=== PATIENT | female | born 1950 | race Caucasian/White ===

== ENCOUNTER 2017-08-31 10:02 | Outpatient (CLI) | payer MEDICARE, OTHER ==
--- NOTE | 2017-09-01 11:37 | DEXA Report ---
DEXA SCAN: 08/31/2017 CLINICAL INDICATION: Postmenopausal. TECHNIQUE: Dual energy x-ray absorptiometry (DXA) was performed on a Neumitra system. Regions measured are the AP spine, femoral neck, and, if needed, forearm. COMPARISON: None. In accordance with the International Society for Clinical Densitometry (ISCD) guidelines, data from previous exams may be reanalyzed using current recommendations and techniques. This is done to allow a more accurate basis for comparison with the current study. FINDINGS: The data for the lumbar spine is as follows: REGION BMD (g/cm/cm) T-SCORE Z-SCORE L1 1.000 -1.1 -0.6 L2 1.047 -1.3 -0.8 L3 1.235 0.3 0.8 L4 1.234 0.3 0.8 TOTAL 1.140 -0.3 0.1 NOTE: All evaluable vertebrae are used for classification. The data for the hip is as follows: REGION BMD (g/cm/cm) T-SCORE Z-SCORE Neck 0.858 -1.3 -0.5 TOTAL 0.933 -0.6 -0.1 NOTE: The femoral neck or total proximal femur, whichever is lowest, is used for classification. IMPRESSION: THE WHO CLASSIFICATION BASED ON THE INTERNATIONAL REFERENCE STANDARD IS OSTEOPENIA (REFERENCE LEFT FEMORAL NECK). THE FRACTURE RISK IS INCREASED. RECOMMENDATION: Patients with diagnosis of osteoporosis or osteopenia should have regular bone mineral density assessment. For those eligible for Medicare, routine testing is allowed once every 2 years. Testing frequency can be increased for patients who have rapidly progressing disease or for those who are receiving medical therapy to restore bone mass. COMMENT: World Health Organization (WHO) definitions for osteoporosis and osteopenia: NORMAL BMD: T-score at 1.0 or higher, fracture risk is low. OSTEOPENIA BMD: T-score between 1.0 and -2.5, fracture risk is increased. OSTEOPOROSIS BMD: T-score at 2.5 or lower, fracture risk high. National Osteoporosis Foundation recommends: 1. Obtain adequate dietary calcium (at least 1200 mg per day) and vitamin D (400 -800 international units per day). 2. Participate, as appropriate, in regular weightbearing and muscle- strengthening exercise. 3. Avoid tobacco use and reduce alcohol and caffeine intake. 4. For more detailed information see the website at www.NOF.org. RA/ TD: 08/31/2017 13:36 ALEX
== END 2017-08-31 10:03 | disposition home or self-care (01) ==
LOC: DI 10:02
PROVIDERS: ATTEND Internal Medicine
DX: Z13.820 Encounter for screening for osteoporosis (principal); M85.88 Other specified disorders of bone density and structure, other site; Z78.0 Asymptomatic menopausal state
CPT/HCPCS: 77080

== ENCOUNTER 2018-06-08 10:04 | Outpatient (CLI) | payer MEDICARE, OTHER ==
[2018-06-08 10:50] LABS: BILIRUBIN,URINE NEGATIVE (NEGATIVE); GLUCOSE, URINE (UA) NEGATIVE (NEGATIVE); KETONES,URINE (UA) NEGATIVE (NEGATIVE); LEUKOCYTE ESTERASE, URINE NEGATIVE (NEGATIVE); NITRITE,URINE NEGATIVE (NEGATIVE); OCCULT BLOOD,URINE NEGATIVE (NEGATIVE); PH,URINE 6.5 PH (5.0-7.5); PROTEIN,URINE NEGATIVE (NEGATIVE); UROBILINOGEN,URINE 0.2 (NORMAL) E.U./dL (NORMAL)
[2018-06-08 11:18] LABS: CLARITY,URINE CLEAR (CLEAR)
== END 2018-06-08 10:05 | disposition home or self-care (01) ==
LOC: LAB 10:04
PROVIDERS: ATTEND Internal Medicine Cardiovascular Disease
DX: R30.0 Dysuria (principal)
CPT/HCPCS: 81001; 81003; 87086

== ENCOUNTER → 2018-06-08 | Outpatient (CLI) | payer MEDICARE, OTHER | LOC: RT 09:00 | PROVIDERS: ATTEND Internal Medicine Cardiovascular Disease | DX: R07.9 Chest pain, unspecified (principal) | CPT/HCPCS: 93005 ==

== ENCOUNTER 2018-07-26 10:56 | Outpatient (CLI) | payer MEDICARE, OTHER ==
--- NOTE | 2018-07-26 16:05 | CARDIAC PROCEDURE NOTE ---
DATE OF SERVICE: 07/26/2018 Physician: Lisa Garay MD, [facility] INDICATION: Chest pain. CARDIAC RISK FACTORS 1. Advanced age. 2. Hypertension. 3. Hyperlipidemia. SUMMARY: After signing informed consent, the patient performed exercise stress testing on a Omar protocol, along with nuclear myocardial perfusion imaging. Resting heart rate 74, peak heart rate 118 (77% predicted maximum heart rate for age). Resting blood pressure 128/70, peak blood pressure 180/60. The patient exercised for 6 minutes on a Omar protocol. She achieved a peak heart rate of 118 (77% PMHR) and 7 METS. The test was stopped due to marked shortness of breath. The patient had slow recovery of her shortness of breath in recovery. Her oxygen saturation was 92% at peak exercise on room air. The patient had no chest pain during this entire test. RESTING EKG: Normal sinus rhythm, possible Q-waves in leads III and AVF, poor R-wave progression across the entire precordium. EKG AT PEAK: No new ST or T-wave changes. SUMMARY 1. Poor exercise tolerance, deconditioning, and shortness of breath was the limiting factor. 2. Exercise stopped due to severe shortness of breath, the patient did not achieve target heart rate. 3. Abnormal resting EKG. 4. No ischemic EKG changes at the suboptimal peak heart rate. 5. Nuclear images reported separately. 6. If the myocardial perfusion is normal, this could be due to inadequate heart rate response. Consider then a pharmaceutical stress test for evaluation. cc: Deena Ashford MD TD: 07/26/2018 15:51 MTDD
--- NOTE | 2018-07-27 08:20 | Nuclear Medicine Report ---
Reason: CHEST PAIN Procedure Date: 07/26/2018 Accession Number: [id number] / [id number] Procedure: NM - Myocardial Perfusion STR/RST CPT Code: FULL RESULT: EXAM: SINGLE-ISOTOPE EXERCISE STRESS TEST. SINGLE-ISOTOPE AND ONE-DAY REST/STRESS MYOCARDIAL PERFUSION SCANS WITH TOMOGRAPHIC IMAGING, QUANTITATIVE ANALYSIS, WALL MOTION ANALYSIS AND CALCULATION OF EJECTION FRACTION. EXAM DATE: 07/26/2018 05:07 PM. CLINICAL HISTORY: CHEST PAIN. COMPARISON: None. TECHNIQUE: A rest myocardial perfusion scan was done with tomography after the intravenous administration of 10.4 mCi Tc-99m sestamibi. After an appropriate delay, a treadmill exercise stress was performed according to department protocol. The patient exercised for 6 minutes and 6 seconds. The maximum heart rate was 118 bpm, which was 77% of the maximum predicted heart rate of 152 bpm. At approximately peak heart rate, 39.1 mCi of Tc-99m sestamibi was injected for stress myocardial perfusion scan. Motion correction was applied when appropriate. Gated tomographic images were obtained for wall motion analysis and computation of left ventricular ejection fraction. FINDINGS: On visual analysis, no significant fixed or reversible perfusion defects are evident. Computer analysis: Summed stress score 10 Summed rest score 3 Summed difference score 7 Wall motion analysis demonstrates no focal wall motion abnormality The left ventricular end-diastolic volume is 53 cc. The left ventricular end-systolic volume is 9 cc. The left ventricular ejection fraction is calculated to be 84%. IMPRESSION: 1. No convincing significant fixed or reversible perfusion defects. 2. Normal left ventricular ejection fraction of >65%. 3. Normal segmental and global wall motion. 4. Normal left ventricular cavity size, no change with stress. 5. Based on computer analysis, moderately abnormal study with mild ischemia. Based on computer analysis, this is felt to be an overestimate. 6. Note, the patient was unable to achieve target heart rate for the stress portion of the exam which may affect accuracy of the study. RADIA
== END 2018-07-26 10:57 | disposition home or self-care (01) ==
LOC: DI 10:56
PROVIDERS: ATTEND Internal Medicine Cardiovascular Disease
DX: R07.9 Chest pain, unspecified (principal); R94.31 Abnormal electrocardiogram [ECG] [EKG]
CPT/HCPCS: 78452; 93017; A9500

== ENCOUNTER 2018-09-11 09:31 | Emergency (ER) | payer MEDICARE, OTHER ==
--- NOTE | 2018-09-11 10:36 | ED Physician Documentation ---
PD HPI HEENT - Stated complaint Stated Complaint: SORE THROAT - Chief complaint Chief Complaint: Heent - History obtained from History obtained from: Patient - History of Present Illness Timing - onset: How many days ago (4) Timing - details: Gradual onset, Still present Pain level max: 5 Pain level now: 5 Location: Throat Improves: Nothing Worsens: Swalllowing Associated symptoms: Rhinorrhea. No: Fever, Congestion, Trismus, Swollen nodes, Facial swelling, Headache, Cough Similar symptoms before: Has not had sx before Recently seen: Not recently seen - Additional information Additional information: 67-year-old female with history of hypertension here with complaint of sore throat the past 4 days. Patient denies any fever, swollen tongue or throat. States has a little bit of nasal congestion. Denies any trauma, travel or recent illness.Denies any MEGAN inhibitor of lisinopril for her blood pressure. Review of Systems Ten Systems: 10 systems reviewed and negative Constitutional: denies: Fever, Chills, Myalgias Nose: reports: Rhinorrhea / runny nose, Congestion Throat: reports: Sore throat. denies: Dental pain / toothache, Oral lesions / sores, Swollen tonsils Cardiac: denies: Chest pain / pressure Respiratory: denies: Dyspnea, Cough Skin: denies: Rash Musculoskeletal: denies: Neck pain Neurologic: denies: Generalized weakness PD PAST MEDICAL HISTORY - Past Medical History Past Medical History: Yes Cardiovascular: Hypertension GI: GERD - Present Medications Home Medications: Ambulatory Orders Medication Instructions Recorded Confirmed Felodipine [Felodipine ER] 10 mg PO DAILY 09/11/18 09/11/18 Ibuprofen [Motrin] 800 mg PO Q8H PRN 09/11/18 09/11/18 RX: Omeprazole 20 mg PO DAILY 09/11/18 09/11/18 Simvastatin [Zocor] 20 mg PO DAILY 09/11/18 09/11/18 Telmisartan/Hydrochlorothiazid 1 each PO DAILY 09/11/18 09/11/18 [Micardis Hct 80-25 mg Tablet] Venlafaxine HCl [Venlafaxine HCl 225 mg PO DAILY 09/11/18 09/11/18 ER] - Allergies Allergies/Adverse Reactions: Allergies Allergy/AdvReac Type Severity Reaction Status Date / Time amoxicillin Allergy Hives Verified 09/11/18 09:41 - Social History Does the pt smoke?: No Smoking Status: Never smoker PD ED PE NORMAL - Vitals Vital signs reviewed: Yes - General General: Alert and oriented X 3, No acute distress, Well developed/nourished - HEENT HEENT: Atraumatic, Moist mucous membranes, Dentition benign, Other (No swelling of her lips, tongue or posterior pharynx. Uvula is Midline, mildly erythematous And faintly swollen. Posterior pharynx has no erythema nor exudate. No peritonsillar abscess.) - Neck Neck: Supple, no meningeal sign, No adenopathy - Cardiac Cardiac: RRR, No murmur - Respiratory Respiratory: Clear bilaterally - Abdomen Abdomen: Normal bowel sounds, Soft, Non tender, Non distended - Derm Derm: Warm and dry - Extremities Extremities: No deformity - Neuro Neuro: Alert and oriented X 3 - Psych Psych: Normal mood, Normal affect Results - Vitals Vitals: Vital Signs - 24 hr 09/11/18 09/11/18 09:41 11:50 Temperature 36.0 C L Heart Rate 77 76 Respiratory 18 18 Rate Blood Pressure 160/100 H 156/106 H O2 Saturation 98 98 Oxygen O2 Source Room air - Labs Labs: Laboratory Tests 09/11/18 10:40 Group A Strep Rapid Negative PD MEDICAL DECISION MAKING - ED course Complexity details: re-evaluated patient, considered differential (Pharyngitis, tonsillitis, upper respiratory infection, uvula irritation), d/w patient, d/w family ED course: 1140 patient in no acute distress and nontoxic-appearing with at the bedside. Patient inform of test results and pending culture. Patient wants to go home. Will take Tylenol or Motrin for pain. If worse will return to the emergency room. Departure - Departure Disposition: 01 Home, Self Care Clinical Impression: Sorethroat Condition: Stable Instructions: ED Pharyngitis Viral Report Pending Comments: Your throat culture is pending. Make sure you hydrate yourself. You may take [id number] Tylenol or Motrin for pain. If you are worse return to the emergency room. Discharge Date/Time: 09/11/18 11:59
[2018-09-11 11:51] VITALS: BP 156/106
== END 2018-09-11 11:59 | disposition home or self-care (01) ==
LOC: ED 09:31
DX: J02.9 Acute pharyngitis, unspecified (principal); I10 Essential (primary) hypertension
CPT/HCPCS: 87070; 87430; 99282; 99283

== ENCOUNTER 2018-10-08 04:39 | Emergency (ER) | payer MEDICARE, OTHER ==
--- NOTE | 2018-10-08 05:15 | ED Physician Documentation ---
History of Present Illness - Stated complaint Stated Complaint: COUGH - Chief complaint Chief Complaint: Resp - History obtained from History obtained from: Patient - History of Present Illness Timing: How many days ago (3) Pain level max: 0 Pain level now: 0 PD PAST MEDICAL HISTORY - Past Medical History Cardiovascular: Hypertension GI: GERD - Present Medications Home Medications: Ambulatory Orders Medication Instructions Recorded Confirmed Felodipine [Felodipine ER] 10 mg PO DAILY 09/11/18 09/11/18 Ibuprofen [Motrin] 800 mg PO Q8H PRN 09/11/18 09/11/18 Omeprazole 20 mg PO DAILY 09/11/18 09/11/18 Simvastatin [Zocor] 20 mg PO DAILY 09/11/18 09/11/18 Telmisartan/Hydrochlorothiazid 1 each PO DAILY 09/11/18 09/11/18 [Micardis Hct 80-25 mg Tablet] Venlafaxine HCl [Venlafaxine HCl 225 mg PO DAILY 09/11/18 09/11/18 ER] Benzonatate [Tessalon Perle] 100 - 200 mg PO TID PRN #30 capsule 10/08/18 - Allergies Allergies/Adverse Reactions: Allergies Allergy/AdvReac Type Severity Reaction Status Date / Time amoxicillin Allergy Hives Verified 09/11/18 09:41 - Social History Does the pt smoke?: No Smoking Status: Never smoker Results - Vitals Vitals: Vital Signs - 24 hr 10/08/18 04:44 Temperature 36.1 C L Heart Rate 73 Respiratory 18 Rate Blood Pressure 142/86 H O2 Saturation 95 Oxygen O2 Source Room air Departure - Departure Disposition: Home, Self Care Clinical Impression: Viral URI with cough Condition: Good Instructions: ED URI Viral Follow-Up: BEULAH BURGESS MD [Primary Care Provider] - As Needed Prescriptions: Benzonatate [Tessalon Perle] 100 - 200 mg PO TID PRN #30 capsule PRN Reason: Cough Comments: Return if you worsen. This will likely last 10-14 days.
[2018-10-08] MEDS ORDERED: BENZONATATE 100 MG CAPSULE PO STA (05:33)
[2018-10-08 05:52] VITALS: BP 131/81
--- NOTE | 2018-10-08 06:23 | ED Physician Documentation ---
History of Present Illness - Stated complaint Stated Complaint: COUGH - Chief complaint Chief Complaint: Resp - History obtained from History obtained from: Patient - History of Present Illness Timing: How many days ago (3) Pain level max: 0 Pain level now: 0 Improved by: rest Worsened by: coughing - Additonal information Additional information: 67-year-old female states she has been coughing for the past 3 days. Had a fever the first day but none since. States that she is out of cough medication. States that her chest hurts when she coughs. Has been taking Motrin for this. Is not having much nasal congestion. No sore throat. Review of Systems Constitutional: denies: Chills GI: denies: Vomiting, Diarrhea Skin: denies: Rash PD PAST MEDICAL HISTORY - Past Medical History Cardiovascular: Hypertension GI: GERD - Present Medications Home Medications: Ambulatory Orders Medication Instructions Recorded Confirmed Felodipine [Felodipine ER] 10 mg PO DAILY 09/11/18 09/11/18 Ibuprofen [Motrin] 800 mg PO Q8H PRN 09/11/18 09/11/18 Omeprazole 20 mg PO DAILY 09/11/18 09/11/18 Simvastatin [Zocor] 20 mg PO DAILY 09/11/18 09/11/18 Telmisartan/Hydrochlorothiazid 1 each PO DAILY 09/11/18 09/11/18 [Micardis Hct 80-25 mg Tablet] Venlafaxine HCl [Venlafaxine HCl 225 mg PO DAILY 09/11/18 09/11/18 ER] Benzonatate [Tessalon Perle] 100 - 200 mg PO TID PRN #30 capsule 10/08/18 - Allergies Allergies/Adverse Reactions: Allergies Allergy/AdvReac Type Severity Reaction Status Date / Time amoxicillin Allergy Hives Verified 09/11/18 09:41 - Social History Does the pt smoke?: No Smoking Status: Never smoker PD ED PE NORMAL - Vitals Vital signs reviewed: Yes - General General: Alert and oriented X 3, No acute distress - HEENT HEENT: Ears normal, Moist mucous membranes, Pharynx benign - Neck Neck: Supple, no meningeal sign - Cardiac Cardiac: RRR, Strong equal pulses - Respiratory Respiratory: No respiratory distress, Clear bilaterally - Derm Derm: Warm and dry - Neuro Neuro: Alert and oriented X 3 Results - Vitals Vitals: Vital Signs - 24 hr 10/08/18 10/08/18 04:44 05:51 Temperature 36.1 C L 36.0 C L Heart Rate 73 66 Respiratory 18 16 Rate Blood Pressure 142/86 H 131/81 H O2 Saturation 95 92 Oxygen O2 Source Room air PD MEDICAL DECISION MAKING - ED course Complexity details: considered differential, d/w patient ED course: Patient with what appears to be a viral upper respiratory infection. She is well-appearing, nontoxic. Afebrile. No hypoxia or respiratory distress. No evidence of pneumonia clinically. Will place on Tessalon for home and follow-up with her doctor. Patient counseled regarding signs and symptoms for which I believe and urgent re-evaluation would be necessary. Patient with good understanding of and agreement to plan and is comfortable going home at this time This document was made in part using voice recognition software. While efforts are made to proofread this document, sound alike and grammatical errors may occur. Departure - Departure Disposition: 01 Home, Self Care Clinical Impression: Viral URI with cough Condition: Good Instructions: ED URI Viral Follow-Up: BEULAH BURGESS MD [Primary Care Provider] - As Needed Prescriptions: Benzonatate [Tessalon Perle] 100 - 200 mg PO TID PRN #30 capsule PRN Reason: Cough Comments: Return if you worsen. This will likely last 10-14 days. Discharge Date/Time: 10/08/18 05:52
== END 2018-10-08 05:52 | disposition home or self-care (01) ==
LOC: ED 04:39
DX: J06.9 Acute upper respiratory infection, unspecified (principal); I10 Essential (primary) hypertension
CPT/HCPCS: 99283; A9270

== ENCOUNTER 2019-11-22 12:22 | Outpatient (CLI) | payer MEDICARE, OTHER ==
--- NOTE | 2019-12-04 12:37 | Mammography Report ---
Reason: ROUTINE MAMMO Procedure Date: 11/22/2019 Accession Number: [id number] / [id number] Procedure: MGN - Screening Mammo w/Lemuel CPT Code: Final Report FULL RESULT: EXAM: Screening Mammo w/Lemuel DATE: 11/22/2019 12:56 PM CLINICAL HISTORY: Nulliparous patient for routine screening TECHNIQUE: (B) - Bilateral CC and MLO views were obtained. COMPARISON: 06/29/2018, 05/19/2017, 04/13/2016 and 03/12/2015 PARENCHYMAL PATTERN: (A) - The breasts demonstrate scattered fibroglandular densities bilaterally. FINDINGS: No significant interval change. There are no suspicious masses, calcifications, or areas of distortion. Faint nodules bilaterally are stable. IMPRESSION: Negative examination. BI-RADS category 1. RECOMMENDATION: (ANNUAL) - Recommend routine annual screening mammography. BI-RADS CATEGORY: (1) - Negative. STANDARD QUALIFYING STATEMENTS: 1. This examination was not reviewed with the aid of Computer-Aided Detection (CAD). 2. A negative or benign imaging report should not preclude biopsy if clinically suspicious findings are present. 3. Dense breasts may obscure an underlying neoplasm. 4. This examination was reviewed with the aid of 3D breast imaging (tomosynthesis).
== END 2019-11-22 12:23 | disposition home or self-care (01) ==
LOC: DI.N 12:22
DX: Z12.31 Encounter for screening mammogram for malignant neoplasm of breast (principal)
CPT/HCPCS: 77063; 77067

== ENCOUNTER 2023-08-29 13:47 | Outpatient (CLI) | payer MEDICARE, OTHER ==
--- NOTE | 2023-08-29 17:50 | XRAY Report ---
PROCEDURE: Chest 2 View X-Ray INDICATIONS: SHORTNESS OF BREATH TECHNIQUE: 2 views of the chest were acquired. COMPARISON: None. FINDINGS: Surgical changes and devices: None. Lungs and pleura: No pleural effusions or pneumothorax. Subtle diffuse interstitial prominence, best seen on lateral view. No focal pulmonary consolidation. Mediastinum: Mediastinal contours appear normal. Heart size is normal. Bones and chest wall: No suspicious bony lesions. Overlying soft tissues appear unremarkable. IMPRESSION: Subtle diffuse interstitial prominence which may reflect early pulmonary edema. No focal pulmonary co nsolidation. Reviewed by: Katt Moody MD on 08/29/2023 5:49 PM PST Approved by: Katt Moody MD on 08/29/2023 5:49 PM PST Station ID: [id number]
== END 2023-08-29 13:48 | disposition home or self-care (01) ==
LOC: DI.N 13:47
PROVIDERS: ATTEND Physician Assistant
DX: R06.02 Shortness of breath (principal)

== ENCOUNTER 2023-10-21 12:27 | Outpatient (CLI) | payer MEDICARE, OTHER | END 2023-10-21 12:28 | disposition home or self-care (01) | LOC: DI 12:27 | PROVIDERS: ATTEND Physician Assistant | DX: R06.09 Other forms of dyspnea (principal); R91.8 Other nonspecific abnormal finding of lung field | CPT/HCPCS: 93307 ==

== ENCOUNTER 2023-12-21 12:45 | Outpatient (CLI) | payer MEDICARE, OTHER | END 2023-12-21 12:46 | disposition home or self-care (01) | LOC: RT 12:45 | PROVIDERS: ATTEND Physician Assistant | DX: R06.09 Other forms of dyspnea (principal); R05.9 Cough, unspecified | CPT/HCPCS: 94010; 94727; 94729 ==